=== PATIENT | male | born 1960 | race Two or more races ===

== ENCOUNTER 2025-05-23 06:00 | Day surgery (SDC) | payer OTHER ==
[2025-05-18 09:51] LABS: BASO % 1.7 % (0.1-1.2); EOS # 0.38 (0.04-0.54); EOS % 11.0 % (0.7-7.0); LYMPH # 1.33 (1.18-3.74); LYMPH % 38.3 % (19.3-53.1); MEAN PLATELET VOLUME 10.00 fl (9.4-12.4); MONO # 0.33 (0.24-0.82); MONO % 9.5 % (4.7-12.5); NEUT # 1.36 (1.56-6.13); NEUT % 39.2 % (34.0-71.1); RED CELL DISTRIBUTION WIDTH 13.6 % (11.6-14.4)
[2025-05-18 10:00] LABS: URINE APPEARANCE Clear; URINE BILIRRUBIN Negative (NEGATIVE); URINE BLOOD Small; URINE COLOR Yellow; URINE GLUCOSE Negative (NEGATIVE); URINE KETONE Negative (NEGATIVE); URINE LEUKOCYTE Negative; URINE NITRATE Negative; URINE PROTEIN Negative (NEGATIVE); URINE UROBILINOGEN 0.2 E.U./dl
[2025-05-18 10:04] LABS: URINE BACTERIA 6.0 uL (0.0-1933); URINE RBC 51.7 uL (0.0-20.8); URINE WBC 3.5 uL (0.0-23.2)
[2025-05-18 10:09] LABS: URINE CAST 0.14 uL (0.0-1.40); URINE EPITHELIAL CELLS 0.7 uL (0.0-38.8)
[2025-05-18 10:25] LABS: INR 0.98
[2025-05-18 10:57] LABS: ALT/SGPT 19.0 U/L (12-78); AST/SGOT 14.0 U/L (15-37); BILIRUBIN TOTAL 0.38 mg/dL (0.3-1.2); BUN CREA RATIO 16.0 (7.0-25.0); CHOL HDL RATIO 4.9 (0-5.0); CREATININE SERUM 0.87 mg/dL (0.70-1.30); GFR 88.06; GLOBULINA 4.1 G/DL (2.4-3.5); GLUCOSE FASTING 87.0 mg/dL (65-100); HDL 38.0 mg/dl (40-60); LDL 132.0 mg/dl (0-130); OSMOLALITY SERUM 281.0 MOSM/KG (275-295); VLDL 14.0 (0-39)
[~2025-05-23 06:00] MED LIST: CALCIO; MESALAMINE DR400 MG PO
[2025-05-23] MEDS ORDERED: CEFAZOLIN SODIUM 1,000 MG VIAL ONE ×2 (07:03→09:58)
[2025-05-23] MEDS ORDERED: CEFAZOLIN SODIUM 1,000 MG VIAL IV SCH (09:30)
[2025-05-23] MEDS ORDERED: FAMOTIDINE/PF 20 MG/2 ML VIAL ONE (09:58)
== END 2025-05-23 12:50 | disposition home or self-care (01) ==
LOC: CIR.AMB 06:00
PROVIDERS: ATTEND Specialist
DX: K40.90 Unilateral inguinal hernia, without obstruction or gangrene, not specified as recurrent (principal); Z88.2 Allergy status to sulfonamides